=== PATIENT | male | born 1935 | race Caucasian/White ===

== ENCOUNTER 2017-01-05 13:57 | Emergency (ER) | payer MEDICARE, BC ==
--- NOTE | 2017-01-05 14:10 | Emergency Department Record ---
History of Present Illness - General Chief Complaint: Headache Migraine Stated Complaint: HEAD PAIN AND BURNING Time Seen by Provider: 01/05/17 14:02 Source: Patient, Family Mode of Arrival: Ambulatory - History of Present Illness Initial Comments: 81 yo male presents with episodes of feeling like he is going to pass out. The episodes are brief but becoming more frequent. No In the last few weeks he has had some chest pain the is brief. He has not fully passed out. He states it is like a hot flash to the face when it occurs. 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 Complaint: Other - Related Data Home Medications Medication Instructions Recorded Confirmed Last Taken Aspirin [Aspirin EC] 81 mg PO DAILY 07/28/14 01/05/17 01/05/17 Carvedilol [Coreg] 6.25 mg PO DAILY 07/28/14 01/05/17 01/05/17 Clonidine HCl [Catapres] 0.2 mg PO DAILY 07/28/14 01/05/17 01/05/17 Lisinopril [Zestril] 10 mg PO DAILY 07/28/14 01/05/17 01/05/17 [place]-3 Fatty Acids/Fish Oil [Fish 1 each PO DAILY 07/28/14 01/05/17 01/05/17 Oil 1,000 mg Softgel] Omeprazole [Prilosec] 40 mg PO DAILY 07/28/14 01/05/17 01/05/17 Rosuvastatin Calcium [Crestor] 40 mg PO DAILY 07/28/14 01/05/17 01/05/17 Cholecalciferol [Vitamin D3] 1,000 unit PO DAILY tab 10/15/16 01/05/17 01/05/17 Dimenhydrinate [Dramamine] 25 mg PO ASDIR 01/05/17 01/05/17 01/05/17 Allergies Allergy/AdvReac Type Severity Reaction Status Date / Time No Known Drug Allergies Allergy Unverified 10/15/16 10:15 Review of Systems Constitutional: Denies: Chills, Fever, Malaise, Weakness Eyes: Denies: Eye discharge ENT: Denies: Congestion Respiratory: Denies: Cough, Dyspnea, Hemoptysis, Stridor, Wheezes Cardiovascular: Reports: Arrhythmia, Palpitations. Denies: Chest pain, Edema, Syncope (feels like he could pass out) Endocrine: Denies: Fatigue, Polydipsia, Polyuria Gastrointestinal: Denies: Abdominal pain, Diarrhea, Nausea, Vomiting Genitourinary: Denies: Dysuria, Hematuria, Urgency Musculoskeletal: Denies: Arthralgia, Back pain, Neck pain Skin: Denies: Bruising, Change in color, Rash Neurological: Reports: Headache (hot flash to the face when it occurs for a brief second) Psychiatric: Denies: Anxiety Hematological/Lymphatic: Denies: Blood Clots, Easy bleeding, Easy bruising, Swollen glands Past Medical History - SOCIAL HISTORY Smoking Status: Former smoker - RESPIRATORY Hx Respiratory Disorders: No - CARDIOVASCULAR Hx Cardio Disorders: Yes Hx Abnormal EKG: Yes Hx Cardiac Cath: Yes Hx Chest Pain: Yes Hx Heart Attack: No Hx Hypertension: Yes - NEURO Hx Neuro Disorders: No - GI Hx GI Disorders: No - Hx Genitourinary Disorders: No - ENDOCRINE Hx Endocrine Disorders: No - MUSCULOSKELETAL Hx Musculoskeletal Disorders: No - PSYCH Hx Psych Problems: No - HEMATOLOGY/ONCOLOGY Hx Hematology/Oncology Disorders: Yes Hx Blood Transfusions: Yes Hx Blood Transfusion Reaction: No Family Medical History Hx Cancer: Mother, Brother/Sister Hx Heart Disease: Father Physical Exam - General General Appearance: Alert, Oriented x3, Cooperative, No acute distress Limitations: No limitations - Head Head exam: Atraumatic, Normal inspection - Eye Eye exam: Normal appearance. negative: Conjunctival injection, Periorbital swelling - ENT ENT exam: Normal exam Ear exam: Normal external inspection Nasal Exam: Normal inspection Mouth exam: Normal external inspection Teeth exam: Normal inspection - Neck Neck exam: Normal inspection, Full ROM. negative: Tenderness - Respiratory Respiratory exam: Normal lung sounds bilaterally. negative: Respiratory distress - Cardiovascular Cardiovascular Exam: Regular rate, Normal rhythm, Normal heart sounds, Other ( rare brief pause). negative: Tachycardia Peripheral Pulses: 2+: Radial (R), Radial (L) - GI/Abdominal GI/Abdominal exam: Soft. negative: Tenderness - Rectal Rectal exam: Deferred - exam: Deferred - Extremities Extremities exam: Normal inspection, Full ROM, Normal capillary refill. negative: Tenderness - Back Back exam: Reports: Normal inspection, Full ROM. Denies: CVA tenderness (R), CVA tenderness (L), Muscle spasm, Rash noted, Tenderness - Neurological Neurological exam: Alert, Normal gait, Oriented X3 - Psychiatric Psychiatric exam: Normal affect, Normal mood. negative: Agitated, Anxious - Skin Skin exam: Dry, Intact, Normal color, Warm Course - Reevaluation(s) Reevaluation #1: During my interview the patient had two episodes. On the monitor he had what appeared to be a sinus pause. He remained awake and alert and the episode lasted seconds. No confusion or altered LOC 01/05/17 14:06 Vitals reviewed. No acute changes 01/05/17 14:12 Reevaluation #2: Rhythm strips reviewed. three pauses noted He has possibly an underlysing aflutter with dropped beats 01/05/17 14:24 Reevaluation #3: No acute changes of the CBC or CMP CK is normal 01/05/17 14:38 Reevaluation #4: I SW Dr Perez at [facility] He will admit to his service Troponin was 0.134 Aspirin ordered No chest pain currently 01/05/17 14:52 01/05/17 14:54 Magnesium 1.7 2gm ordered 01/05/17 14:55 Reevaluation #5: With the likely underlying afib with positive troponin heparin will be started as well. 01/05/17 15:03 Procedures - EKG Initial Date: 01/05/17 Time: 14:09 EKG Detail: Sinus vs underlying aflutter 65, Int normal, [place] normal, ST normal Medical Decision Making - Lab Data Result diagrams: 01/05/17 14:10 01/05/17 14:10 Disposition Disposition: Transfer Clinical Impression: Near syncope, Sinus pause, Elevated troponin, NSTEMI (non-ST elevated myocardial infarction) [facility]: Near syncope, SSS, Elevated troponin Accepting Physician: Chris Time Discussed w/Accepting Physician: 14:53 Condition: (2) Stable Forms: Patient Portal Access Time of Disposition: 14:53
[2017-01-05 14:17] LABS: BASO % 0.6 % (0-6); EOS % 4.5 % (0-6); GRAN % 54.2 % (47-80); HEMATOCRIT 38.7 % (42.0-52.0); HEMOGLOBIN 12.9 gm/dl (14.0-18.0); LYMPH % 29.7 % (16-45); MEAN CORPUSCULAR HEMOGLOBIN 29.3 pg (27-33); MEAN CORPUSCULAR HGB CONC 33.3 g/dl (32-36); MEAN PLATELET VOLUME 9.7 fl (7.4-10.4); PLATELET COUNT 224 K/uL (130-400); RED CELL DISTRIBUTION WIDTH 12.7 % (11.5-14.5); WHITE BLOOD COUNT W/O DIFF 8.2 K/uL (4.2-12.2)
[2017-01-05 14:30] LABS: ALB/GLOB RATIO 1.3 (1.1-1.8); ALKALINE PHOSPHATASE 77 U/L (38-126); ALT/SGPT 24 U/L (21-72); ANION GAP 8.9 (7-16); AST/SGOT 18 U/L (17-59); BILIRUBIN,TOTAL 0.56 mg/dL (0.2-1.3); BLOOD UREA NITROGEN 26 mg/dL (9-20); CARBON DIOXIDE 25.1 mmol/L (22-30); CREATINE PHOSPHOKINASE 47 U/L (55-170); CREATININE 1.2 mg/dL (0.66-1.25); EST GLOMERULAR FILTRATION RATE > 60 ml/min; GLUCOSE,RANDOM 114 mg/dL (70-110); INR 1.03; PARTIAL THROMBOPLASTIN TIME 26.3 SECONDS (24.5-39.1); PROTHROMBIN TIME (PATIENT) 11.6 SECONDS (9.5-12.1); TOTAL PROTEIN 7.1 gm/dL (6.3-8.2)
[2017-01-05 14:41] LABS: CKMB 1.4 ug/L (0-6)
[2017-01-05] MEDS ORDERED: ASPIRIN 81 MG CHEWABLE TABLET PO ONE (14:53)
[2017-01-05] MEDS ORDERED: MAGNESIUM SULFATE 16 MEQ in 0.9 % SODIUM CHLORIDE 100ML 100 ML IV ONE (14:54)
[2017-01-05 15:02] LABS: TROPONIN I 0.134 ng/mL (0.00-0.034)
[2017-01-05] MEDS ORDERED: HEPARIN SODIUM 1000 UNIT/1 ML 10ML VIAL IVP ONE (15:04)
[2017-01-05] MEDS ORDERED: HEPARIN SODIUM/D5W 25,000 UNITS/500 ML BAG IV SCH (15:15)
--- NOTE | 2017-01-06 13:29 | RADIOLOGY REPORT ---
EXAM: PORTABLE CHEST HISTORY: CHEST PAIN. NEAR SYNCOPE. TECHNIQUE: A single mobile upright view of the chest was obtained. Comparison: Two view chest radiographic examination dated 08/11/16. FINDINGS: Post median sternotomy changes are redemonstrated. The left heart border is again noted to be partially obscured. It is indeterminate whether this relates to a prominent pericardial fat pad. Reticular opacity prominence is suggested within the left lung base consistent with chronic interstitial change. This does not appear significantly changed. Similar though less pronounced reticular opacities are noted in the lateral right hemithorax space. No new lung consolidation is seen. A calcified granuloma is noted within the lateral left lung base. No costophrenic angle blunting or pneumothorax. IMPRESSION: 1. ILL DEFINITION OF THE LEFT HEART BORDER AGAIN NOTED SLIGHTLY MORE PRONOUNCED IN THE INTERVAL. THIS MAY RELATE TO A PROMINENT PERICARDIAL FAT PAD VERSUS ATELECTASIS OR AIR SPACE DISEASE WITHIN THE LINGULA. 2. RETICULAR OPACITY PROMINENCE IN THE LOWER LEFT LUNG IS STABLE CONSISTENT WITH CHRONIC INTERSTITIAL CHANGES. MILD CHRONIC INTERSTITIAL CHANGE IS ALSO NOTED IN THE LATERAL RIGHT LUNG BASE. 3. CALCIFIED GRANULOMA REDEMONSTRATED IN THE LEFT LUNG BASE. NOT MENTIONED ABOVE ARE CALCIFIED LYMPH NODES IN THE LEFT HILUM AND AP WINDOW CONSISTENT WITH HEALED GRANULOMATOUS DISEASE WELL. JOB NUMBER: [id number] [facility]
== END 2017-01-05 17:17 | disposition short-term general hospital (02) ==
LOC: ER 13:57
DX: I21.4 Non-ST elevation (NSTEMI) myocardial infarction (principal); I49.5 Sick sinus syndrome; R55 Syncope and collapse; R79.89 Other specified abnormal findings of blood chemistry; I10 Essential (primary) hypertension; I25.2 Old myocardial infarction; Z87.891 Personal history of nicotine dependence; Z95.1 Presence of aortocoronary bypass graft
CPT/HCPCS: 71010; 80053; 82550; 82553; 83735; 84484; 85025; 85610; 85730; 93005; 93010; 96365; 96366; 96375; 99285

== ENCOUNTER 2018-09-08 16:39 | Emergency (ER) | payer MEDICARE, BC ==
--- NOTE | 2018-09-08 17:29 | Emergency Department Record ---
History of Present Illness - General Chief Complaint: Fall Injury Stated Complaint: FALL INJURY, ON A BLOOD THINNER Time Seen by Provider: 09/08/18 17:16 Source: Patient Mode of Arrival: Ambulatory Limitations: No limitations - History of Present Illness Initial Comments: The patient is here due to slipping and falling on the ice about 2 hours ago and landing on the R shoulder and hip. He denies any head trauma or bumping his head. The patient also denies any neck pain. Since the fall he has had significant R shoulder pain and mild R hip pain. He has been unable to elevate the R arm due to pain but he is able to walk. The patient denies any ROJAS, neck pain, visual changes, CP or AP. Onset/Timin -: Hour(s) Fall From: Standing Fall Witnessed: No Place Fall Occurred: Home Loss of Consciousness: None Prolonged Down Time?: No Severity scale (1-10): 10 Context: Tripped/slipped Associated Symptoms: Weakness - [place] Coma Scale Eye Response: (4) Open spontaneously Motor Response: (6) Obeys commands Verbal Response: (5) Oriented [place] Total: 15 - Related Data Home Medications Medication Instructions Recorded Confirmed Last Taken Acetaminophen [Tylenol Extra 500 mg PO DAILY PRN 09/08/18 09/08/18 Unknown Strength] Furosemide [Lasix] 40 mg PO DAILY 09/08/18 09/08/18 Unknown Isosorbide Mononitrate [Imdur] 30 mg PO DAILY 09/08/18 09/08/18 Unknown Methimazole 10 mg PO BID 09/08/18 09/08/18 Unknown Potassium Chloride 10 meq PO DAILY 09/08/18 09/08/18 Unknown Tiotropium Br/Olodaterol HCl 4 gm IH ASDIR 09/08/18 09/08/18 Unknown [Stiolto Respimat Inhal [place]] Warfarin Sodium [Coumadin] 1 mg PO DAILY 09/08/18 09/08/18 Unknown Allergies Allergy/AdvReac Type Severity Reaction Status Date / Time No Known Drug Allergies Allergy Verified 09/08/18 17:16 Travel Screening - Travel/Exposure Within Last 30 Days Have you traveled within the last 30 days?: No - Travel/Exposure Within Last Year Have you traveled outside the [place] in the last year?: No - Additonal Travel Details Have you been exposed to anyone with a communicable illness?: No - Travel Symptoms Symptom Screening: None Review of Systems Constitutional: Denies: Chills, Fever Eyes: Denies: Eye discharge ENT: Denies: Congestion Respiratory: Denies: Cough, Dyspnea Past Medical History - SOCIAL HISTORY Smoking Status: Former smoker Alcohol Use: None Drug Use: None - RESPIRATORY Hx Respiratory Disorders: Yes Hx COPD: Yes - CARDIOVASCULAR Hx Cardio Disorders: Yes Hx Abnormal EKG: Yes Hx Cardiac Cath: Yes Hx Chest Pain: Yes Hx Heart Attack: No Hx Hypertension: Yes - NEURO Hx Neuro Disorders: No - GI Hx GI Disorders: No - Hx Genitourinary Disorders: No - ENDOCRINE Hx Endocrine Disorders: Yes Hx Thyroid Disease: Yes - MUSCULOSKELETAL Hx Musculoskeletal Disorders: No - PSYCH Hx Psych Problems: No - HEMATOLOGY/ONCOLOGY Hx Hematology/Oncology Disorders: Yes Hx Blood Transfusions: Yes Hx Blood Transfusion Reaction: No Family Medical History Any Significant Family History?: No Hx Cancer: Mother, Brother/Sister Hx Heart Disease: Father Physical Exam - General General Appearance: Alert, Oriented x3, Cooperative, No acute distress - Head Head exam: Atraumatic, Normocephalic, Normal inspection (There are no signs of any head trauma.) - Eye Eye exam: Normal appearance, PERRL, EOMI - Neck Neck exam: Normal inspection, Full ROM. negative: Lymphadenopathy, Meningismus , Tenderness - Respiratory Respiratory exam: Normal lung sounds bilaterally. negative: Respiratory distress - Cardiovascular Cardiovascular Exam: Regular rate, Normal rhythm, Normal heart sounds. negative : Diastolic murmur, Systolic murmur - GI/Abdominal GI/Abdominal exam: Soft. negative: Tenderness - Extremities Extremities exam: Normal inspection, Normal capillary refill, Tenderness (There is significant R shoulder tenderness.), Other (There is mild R hip tenderness but normal ROM and the patient is ambulating normally. The R arm and leg are NVI.). negative: Full ROM (The patient is not able to flex, extend or abduct his R shoulder. ) - Back Back exam: Denies: Vertebral tenderness - Neurological Neurological exam: Alert, Normal gait. negative: Abnormal gait, Motor sensory deficit Course Vital Signs 09/08/18 17:04 Temperature 98.1 F Pulse Rate 74 Respiratory 20 Rate Blood Pressure 143/86 Pulse Ox 93 L - Reevaluation(s) Reevaluation #1: The patient is doing better. He is up walking with his R arm in a sling. I did explain to him that his xrays do not demonstrate any bony abnormality but I am concerned he may have a rotator cuff tear. He is to stay in the sling for a week and see his PCP next week. 09/08/18 18:15 Reevaluation #2: The patient is doing very well at this time. He denies any ROJAS or neck pain and is ready for home. 09/08/18 18:16 Medical Decision Making - Data Complexity MDM Data: Labs Ordered and/or Reviewed, X-Ray Ordered and/or Reviewed - Lab Data Result diagrams: 09/08/18 17:15 - Radiology Data Radiology results: Report reviewed (R shoulder and Hip: Neg for acute changes. Prob calcific tendonitis R shoulder.) Disposition Disposition: Discharge Clinical Impression: Rotator cuff dysfunction Qualifiers: Laterality: right Qualified Code(s): M67.911 - Unspecified disorder of synovium and tendon, right shoulder Disposition: Home, Self-Care Condition: (2) Stable Instructions: Rotator Cuff Injury (ED) Additional Instructions: Please use Tylenol for pain and ice the R shoulder for 2 days. Wear the sling for a week and please see your family doctor next week for recheck and for a possible R shoulder MRI. Forms: Patient Portal Access Time of Disposition: 18:18 Quality - Blood Pressure Screening Does Patient Have Any of the Following: No Blood Pressure Classification: Pre-Hypertensive BP Reading Systolic Measurement: 143 Diastolic Measurement: 86 Screening for High Blood Pressure: < Pre-Hypertensive BP, F/U Documented > [ [id number]]
[2018-09-08 17:54] LABS: BASO % 0.3 % (0-6); EOS % 3.8 % (0-6); GRAN % 70.8 % (47-80); HEMATOCRIT 46.7 % (42.0-52.0); LYMPH % 16.4 % (16-45); MEAN CELL VOLUME 89.3 fl (81-97); MEAN CORPUSCULAR HEMOGLOBIN 28.7 pg (27-33); MEAN CORPUSCULAR HGB CONC 32.1 g/dl (32-36); MEAN PLATELET VOLUME 9.6 fl (7.4-10.4); MONO % 8.7 % (0-9); PLATELET COUNT 285 K/uL (130-400); RED BLOOD COUNT 5.23 M/uL (4.40-5.70); RED CELL DISTRIBUTION WIDTH 14.2 % (11.5-14.5); WHITE BLOOD COUNT W/O DIFF 12.2 K/uL (4.2-12.2)
[2018-09-08] MEDS ORDERED: ACETAMINOPHEN 325 MG TAB PO ONE (17:59)
[2018-09-08 18:07] LABS: INR 2.5
--- NOTE | 2018-09-12 13:16 | RADIOLOGY REPORT ---
EXAM: RIGHT SHOULDER HISTORY: FALL, RIGHT SHOULDER PAIN. TECHNIQUE: Three views of the right shoulder were obtained. Comparison: Chest radiograph 08/11/18. FINDINGS: No definite acute fracture is seen. No evidence of dislocation. Amorphous 6 mm focus of calcification near the posterior humeral head in the expected region of the rotator cuff. Glenohumeral arthrosis with inferior osteophytes. Acromioclavicular joint arthrosis with possible subacromial spur/enthesophyte. IMPRESSION: 1. NO DEFINITE ACUTE OSSEOUS FINDINGS. 2. SMALL CALCIFIC FOCUS ADJACENT TO THE HUMERAL HEAD; THIS MAY BE PRESENT ON CHEST RADIOGRAPH FROM 08/11/18. ROTATOR CUFF CALCIFIC TENDINOSIS IS FAVORED. AVULSION IS IN THE DIFFERENTIAL, BUT THOUGHT LESS LIKELY. 3. GLENOHUMERAL AND ACROMIOCLAVICULAR JOINT ARTHROSIS. [facility] [id number] [facility]
--- NOTE | 2018-09-12 13:50 | RADIOLOGY REPORT ---
EXAM: RIGHT HIP HISTORY: FALL, RIGHT HIP PAIN. TECHNIQUE: AP view of the pelvis and AP and lateral views of the right hip were obtained. Comparison: None. FINDINGS: No acute fracture is seen. No evidence of hip joint dislocation. Bilateral femoroacetabular osteoarthrosis, greater on the right. Diffuse pelvic and proximal femoral enthesopathy. Degenerative changes in the lower lumbar spine. Diffuse vascular calcifications. Surgical clip in the left groin. IMPRESSION: 1. NO ACUTE OSSEOUS FINDINGS. 2. DEGENERATIVE CHANGES IN BOTH HIPS. [facility]: [id number] [facility]
== END 2018-09-08 18:24 | disposition home or self-care (01) ==
LOC: ER 16:39
DX: G89.11 Acute pain due to trauma (principal); M25.551 Pain in right hip; M25.511 Pain in right shoulder; M67.911 Unspecified disorder of synovium and tendon, right shoulder; J44.9 Chronic obstructive pulmonary disease, unspecified; I10 Essential (primary) hypertension; W00.0XXA Fall on same level due to ice and snow, initial encounter; Y92.009 Unspecified place in unspecified non-institutional (private) residence as the place of occurrence of the external cause; Z87.891 Personal history of nicotine dependence; Z79.01 Long term (current) use of anticoagulants
CPT/HCPCS: 85025; 85610; 99283; 99284